=== PATIENT | female | born 1995 | race Caucasian/White ===

== ENCOUNTER 2020-11-01 13:13 | Emergency (ER) | payer OTHER, MEDICAID ==
[~2020-11-01] VITALS: Ht 149.9 cm; Wt 77.1 kg
[2020-11-01] MEDS ORDERED: HYDROCODON-ACE1 EAC7 PO (14:24)
[2020-11-01 14:37] VITALS: BP 121/70
== END 2020-11-01 14:38 | disposition home or self-care (01) ==
LOC: M.ERS 13:13
DX: S93.402A Sprain of unspecified ligament of left ankle, initial encounter (principal); Z98.890 Other specified postprocedural states; W10.8XXA Fall (on) (from) other stairs and steps, initial encounter; Y93.89 Activity, other specified; Y92.89 Other specified places as the place of occurrence of the external cause; Y99.8 Other external cause status